=== PATIENT | female | born 1970 | race Caucasian/White ===

== ENCOUNTER 2018-09-14 16:27 | Inpatient (IN) ==
[2018-09-14] MEDS ORDERED: ZOFRAN IV PRN (17:39)
[2018-09-14 18:03] LABS: BASO# 0.09 X1000 (0.0-0.2); BASO% 0.9 % (0.0-0.8); EOS% 1.9 % (0.0-10.0); HEMATOCRIT 42.3 % (37.0-47.0); HEMOGLOBIN 14.6 g/dL (12.0-16.0); IMM GRAN# 0.02 X1000 (0.0-0.04); IMM GRAN% 0.2 % (0.0-0.5); LYMPH# 1.33 X1000 (1.2-3.4); LYMPH% 12.9 % (20.5-51.1); MCH 30.9 PG (27-31); MCHC 34.5 g/dL (33-37); MCV 89.4 FL (81-99); MONO% 14.5 % (1.7-9.3); MPV 9.3 FL (7.4-10.4); NEUT# 7.19 X1000 (1.4-6.5); NEUT% 69.6 % (42.2-75.2); PLT 302 X1000 (130-400); RBC 4.73 XMIL (4.2-5.4); RDW 13.1 % (11.5-14.5); WBC 10.33 X1000 (4.8-10.8)
[2018-09-14 18:24] LABS: BANDS 5 % (0-1); EOS 4 % (1-10); LYMPHS 8 % (21-51); MONO 9 % (1-9); SEGS 66 % (42-75)
[2018-09-14 18:35] LABS: AGAP 13; ALB/GLOB RATIO 1.4; ALBUMIN 4.1 g/dL (3.5-5.0); ALKALINE PHOSPHATASE 105 U/L (32-104); AMYLASE 34 U/L (20-200); BUN 12 mg/dL (8-22); CALCIUM 8.2 mg/dL (8.8-10.2); CHLORIDE 100 mmol/L (98-107); COSMO 271; CREATININE 0.9 mg/dL (0.5-0.9); ESTIMATED GFR > 60; GLUCOSE 125 mg/dL (70-104); GOT 13 U/L (10-30); GPT 24 U/L (10-36); POTASSIUM 2.6 mmol/L (3.5-5.1); SODIUM 135 mmol/L (136-145); TCO2 22 mmol/L (25-35); TOTAL BILIRUBIN 0.52 mg/dL (0.20-1.00)
--- NOTE | 2018-09-14 21:32 | HISTORY AND PHYSICAL ---
CHIEF COMPLAINT: Intractable nausea, vomiting, diarrhea since return from [facility] since Wednesday. HISTORY OF PRESENT ILLNESS: She is a 48-year-old white female who came to the office basically with the above symptoms since Wednesday after return from the [facility]. She was dehydrated and the patient also has orthostatic hypotension, tachycardic, blood pressure 90/63. Admitted to the hospital for dehydration due to gastroenteritis symptoms. The patient was very dizzy upon standing in my office. PAST MEDICAL HISTORY: Chronic back pain, depression, migraine headache, history of vitamin B12 deficiency. PAST SURGICAL HISTORY: Gastric bypass, cholecystectomy, partial hysterectomy, back surgery in [address] Shields due to intrathecal meningioma. MEDICATIONS: Prior to the admission are: B12 injections once a month, Prozac 20 mg daily, gabapentin 600 at bedtime, Estradiol 1 tablet daily and [place] 5 q.8 as needed, rizatriptan 10 mg as directed, Savella 100 mg p.o. b.i.d., Aimovig 30 mg once a month for the migraine headaches, Flexeril 10 at bedtime, Prilosec 20 daily, Ambien 5 mg at bedtime, Topamax 200 daily. ALLERGIES: Not known. SOCIAL HISTORY: , remarried, 1 child. No smoking. No alcohol. No drug abuse. FAMILY HISTORY: Father is 75 years old with heart disease. Mom is alive and healthy. REVIEW OF SYSTEMS: HEENT: No headache. No vision problem. No earache. No sore throat. Neck: No goiter. No lymphadenopathy. No bruit. Cardiopulmonary: No chest pain, shortness of breath, PND, orthopnea. Gastrointestinal: Nausea, vomiting, abdominal cramps, diarrhea. No bleeding per rectum. : No history of hesitancy, frequency, dysuria. No swelling of legs. No joint pain. Neurologic: No focal symptoms or weakness. EXAMINATION: In my office upon standing blood pressure is 90/60. Heart rate is 125 orthostatic. Afebrile.HEENT: Within normal limits. Dry mucous membranes. Neck: Supple. No lymphadenopathy. Chest: Clear to auscultation. Heart: Sounds are irregular, tachycardic. Abdomen: Belly is soft, nontender. Good bowel sounds. No signs of peritonitis. Extremities: No peripheral edema or cyanosis. Neurologic: No obvious neurological deficits. INVESTIGATIONS: CBC: White cell count 10, hematocrit 42, platelets 302,000. SMA 7: Sodium 135, potassium 2.6, chloride 12, creatinine 0.9, glucose 125. Liver function test: Amylase was normal. Stool occult blood is negative. ASSESSMENT AND PLAN: 1. This 48-year-old white female admitted to the hospital with gastroenteritis symptoms after returning from [facility] impending dehydration, hypokalemia. Plan is IV fluids. Replace the potassium. Stool cultures. Rule out traveler's diarrhea and we will use empirically Xifaxan for 3 days. 2. Reconcile home medications slowly. OTHER PROBLEMS FOLLOWS: 1. Migraine headaches on Topamax, Aimovig, and Maxalt. 2. Depression on Prozac. 3. Postmenopausal on hormones. 4. Acid reflux disease on proton pump inhibitor. 5. Chronic pain on [place] as needed. 6. Last colonoscopy [address] [place]. 7. 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 8. History of gastric bypass surgery in the past. 9. Status post intrathecal meningioma excision. 10. Chronic pain taking [place]. 11. B12 deficiency, on replacement therapy. 12. We will follow up. cc: Julián Batista MD MTDD
[2018-09-14] MEDS: NS 1,000 ML IV SCH (21:58)
[2018-09-14] MEDS ORDERED: SODIUM CHLORIDE 0.9% INJ SCH (22:00)
[2018-09-14] MEDS: NORCO-5 PO PRN (22:02)
[2018-09-14] MEDS: PEPCID IV SCH (22:04)
[2018-09-14] MEDS: POTASSIUM CHLORIDE 60 MEQ in NS 500 ML IV SCH (22:12)
[2018-09-14] MEDS: AMBIEN PO SCH (22:13)
[2018-09-14] MEDS: XIFAXAN PO SCH (22:13)
[2018-09-15] MEDS: POTASSIUM CHLORIDE 60 MEQ in NS 500 ML IV SCH (05:27)
[2018-09-15] MEDS: NS 1,000 ML IV SCH ×3 (05:28→22:09)
[2018-09-15] MEDS: XIFAXAN PO SCH ×3 (09:42→17:49)
[2018-09-15] MEDS: PEPCID IV SCH ×2 (09:43→22:12)
--- NOTE | 2018-09-15 21:59 | PROGRESS NOTE ---
DATE: 09/15/2018 SUBJECTIVE: The patient has 4 loose bowel movements, abdominal cramps, no fever. OBJECTIVE: On exam, the patient is not orthostatic. HEENT exam dry. Chest is clear. Heart sounds are regular. Belly is soft nontender and no obvious neurological deficits. INVESTIGATIONS: WBC negative. Occult blood negative and potassium 2.6. ASSESSMENT AND PLAN: 1. Gastroenteritis symptoms. Stool cultures so far negative. Plan is IV fluids. 2. Orthostatic traveler's diarrhea and cefoxitin as directed. 3. Follow up on the labs in the morning. Continue to monitor. Slowly reconcile her home medications. LEVEL OF DOCUMENTATION: 25 minutes. cc: Julián Batista MD
[2018-09-15] MEDS: NORCO-5 PO PRN (22:12)
[2018-09-15] MEDS: AMBIEN PO SCH (22:12)
[2018-09-15] MEDS: IMODIUM PO PRN (22:12)
[2018-09-16] MEDS: IMODIUM PO PRN ×2 (01:33→08:42)
[2018-09-16] MEDS: NS 1,000 ML IV SCH ×2 (05:40→21:00)
[2018-09-16 07:42] LABS: AGAP 9; BUN 4 mg/dL (8-22); CALCIUM 7.8 mg/dL (8.8-10.2); CHLORIDE 110 mmol/L (98-107); COSMO 280; CREATININE 0.7 mg/dL (0.5-0.9); ESTIMATED GFR > 60; GLUCOSE 98 mg/dL (70-104); POTASSIUM 2.8 mmol/L (3.5-5.1); SODIUM 142 mmol/L (136-145); TCO2 23 mmol/L (25-35)
[2018-09-16 07:43] LABS: PHOSPHORUS 2.5 mg/dL (2.7-4.5)
[2018-09-16] MEDS ORDERED: CALCIUM GLUCONATE 1 GM in NS 50 ML IV ONE (08:27)
[2018-09-16] MEDS ORDERED: POTASSIUM PHOSPHATE 30 MEQ in NS 250 ML IV ONE (08:27)
[2018-09-16] MEDS ORDERED: MAGNESIUM SULFATE 2 GM/S.W.I. 2 GM/50 ML IVPB IV ONE (08:27)
[2018-09-16] MEDS: XIFAXAN PO SCH ×2 (08:36→13:02)
[2018-09-16] MEDS: POTASSIUM CHLORIDE 60 MEQ in NS 500 ML IV SCH ×2 (09:47→23:53)
[2018-09-16] MEDS: PEPCID IV SCH ×2 (09:47→22:00)
[2018-09-16] MEDS ORDERED: BENTYL PO PRN (12:55)
[2018-09-16] MEDS ORDERED: BENTYL PO SCH (13:00)
--- NOTE | 2018-09-16 20:03 | PROGRESS NOTE ---
DATE: 09/16/2018 SUBJECTIVE: The patient still has diarrhea and severely dehydrated. Hemodynamics are stable. PHYSICAL EXAM: Vital Signs: Temperature is 98. Vitals: Are stable. HEENT Exam: Dry mucous membranes. Chest: Clear. Heart: Sounds are regular. Abdomen: Belly is soft, nontender. Neurologic: No obvious neurological deficits. INVESTIGATIONS: Sodium 142, potassium 2.8. Magnesium is low. Phosphate is low. Calcium is low. ASSESSMENT AND PLAN: 1. Gastroenteritis, most likely traveler's diarrhea with severe dehydration. 2. Electrolytic abnormalities, hypokalemia, hypophosphatemia, hypomagnesemia, hypocalcemia. Plan is replace the potassium. Replace the magnesium. Replace the phosphate, replace the calcium and repeat the labs in the morning. 3. Continue to monitor and slowly advance the diet as tolerated. LEVEL OF DOCUMENTATION: 25 minutes. cc: Julián Batista MD
[2018-09-16] MEDS: AMBIEN PO SCH (20:56)
[2018-09-16] MEDS: NORCO-5 PO PRN (20:59)
[2018-09-17 07:44] LABS: HEMATOCRIT 34.2 % (37.0-47.0); HEMOGLOBIN 11.6 g/dL (12.0-16.0); MCH 30.7 PG (27-31); MCHC 33.9 g/dL (33-37); MCV 90.5 FL (81-99); MPV 9.6 FL (7.4-10.4); RBC 3.78 XMIL (4.2-5.4); RDW 13.3 % (11.5-14.5); WBC 7.27 X1000 (4.8-10.8)
[2018-09-17 08:12] LABS: AGAP 9; BUN 5 mg/dL (8-22); CHLORIDE 116 mmol/L (98-107); COSMO 287; CREATININE 0.7 mg/dL (0.5-0.9); GLUCOSE 88 mg/dL (70-104); POTASSIUM 3.2 mmol/L (3.5-5.1); SODIUM 146 mmol/L (136-145); TCO2 21 mmol/L (25-35)
[2018-09-17 08:13] LABS: CALCIUM 8.2 mg/dL (8.8-10.2); ESTIMATED GFR > 60; MAGNESIUM 1.6 mg/dL (1.5-2.7); PHOSPHORUS 3.7 mg/dL (2.7-4.5)
[2018-09-17] MEDS: XIFAXAN PO SCH (09:49)
[2018-09-17] MEDS: PEPCID IV SCH (09:49)
[2018-09-17] MEDS ORDERED: MAGNESIUM SULFATE 2 GM/S.W.I. 2 GM/50 ML IVPB IV ONE (11:31)
[2018-09-17 11:55] VITALS: BP 108/67
[2018-09-17] MEDS ORDERED: POTASSIUM CHLORIDE 20 MEQ/SWI 20 MEQ/100 ML IVPB IV SCH (12:00)
--- NOTE | 2018-09-17 20:17 | DISCHARGE SUMMARY ---
ADMISSION DATE: 09/14/2018 DISCHARGE DATE: 09/17/2018 DISCHARGING DIAGNOSIS: Dehydration due to intractable nausea, vomiting, and diarrhea due to traveler's diarrhea. SECONDARY DIAGNOSES: 1. Hypokalemia. 2. Hypomagnesemia. 3. Hypocalcemia. 4. Hypophosphatemia. 5. Chronic back pain. 6. Depression. 7. Migraine headaches. 8. B12 deficiency. 9. Prior history of gastric bypass surgery. BRIEF HISTORY: Please see the H and P that was done on 09/14/2018. In brief, she is a 48-year- old white female who recently came back from [facility]. Started having nausea, vomiting, abdominal cramps, and diarrhea. The patient was found to have orthostatic hypotension and severely dehydrated with hypokalemia and electrolytic abnormalities. The patient was started on Xifaxan, IV fluids. Replaced the electrolytes as needed. The patient has had a loose bowel movement. Subsequent cultures were negative. C. difficile was negative. LABORATORIES: White cell count 7.2, hematocrit 34, platelets 249,000. Sodium 146, potassium 3.2, chloride 116, BUN 5, creatinine 0.7, glucose 88, calcium 8.2, phosphorus 3.7, magnesium 1.6. Microbiology stool is negative. Occult blood is negative. DISPOSITION: At the time of discharge the patient is advised to take some probiotics, Xifaxan 200 t.i.d. for 5 days, and less greasy foods. No milk products for 1 week. Resume home medicines as follows: Cyanocobalamin 1 mL once a month, Prozac 20 mg daily, gabapentin 600 at bedtime, [place] as needed for pain, Maxalt 10 mg as needed, Savella 100 p.o. b.i.d., Aimovig 70 mg once a month, Flexeril 10 at bedtime, Prilosec 20 daily, Ambien 5 at bedtime, Topamax 200 daily, Bentyl 10 mg as needed for diarrhea, potassium 20 mEq daily, and Norethindrone- estradiol 1 tablet daily. Follow up in my office in 10 days. cc: Julián Batista MD MTDD
== END 2018-09-17 14:41 | disposition home or self-care (01) | DRG 641 ==
LOC: DIRADM 16:27 → 3N 16:42
PROVIDERS: ADMIT Internal Medicine; ATTEND Internal Medicine
CPT/HCPCS: 80048; 80053; 82150; 82270; 83735; 84100; 85025; 85027; 87045; 87046; 87205; 89055; A9270; J0610; J3475; J3480; J7030; J7040; J7050; S0028